=== PATIENT | male | born 1945 | race Caucasian/White ===

== ENCOUNTER 2018-05-24 10:47 | Observation (INO) | payer MEDICARE, BC ==
[~2018-05-24] VITALS: Ht 170.2 cm; Wt 96.0 kg
[~2018-05-24 10:47] MED LIST: ALBU90OI INH; ALFU10 PO; ALPR.25 PO; ALPR.5 PO; AMLO5 PO; Aspirin EC81 MG PO; BP MED; BUDE6HFA; BUDE6HFA INH; CELE200 PO; CHOLESTEROL MED; DIAZ10 PO; DICY20 PO; ERGO50000 PO; FURO20 PO; Glucosamine &1 EACH PO; HYDACE5 PO; INSLI100I SC; INSR10I SC; Isosorbide Mono30 MG PO; LISI20 PO; LORA1 PO; Lisinopril2.5 MG PO; METO25ER PO; Magnesium250 MG PO; Metamucil Smooth1 EA PO; Multiple Vitam1 EAC1; Nitrostat0.4 MG SL; Novolog Fl100 UNIT/1 SC; OMEPRAZOLE MAGN20 MG PO; OXYACE7.5T PO; POLY500; PROBIOTIC1 EAC1; RISP.25 PO; RISP3 PO; ROSU5 PO; SERT25 PO; Stool Softener100 MG; TAMS.4ER PO; VITAMIN D34000 UNIT PO; [UNRECOGNIZED DRUG - REMARK]
[2018-05-24 11:43] LABS: BASOPHILS ABSOLUTE AUTO 0.04 K/mm3 (0.00-0.23); BASOPHILS PERCENT AUTO 1 % (0-2); EOSINOPHILS ABSOLUTE AUTO 0.11 K/mm3 (0.00-0.68); EOSINOPHILS PERCENT AUTO 2 % (0-6); Hematocrit 51.5 % (37.0-53.0); Hemoglobin 17.4 g/dL (13.5-17.5); IMMATURE GRAN ABSOLUTE AUTO 0.03 K/mm3 (0.00-0.10); IMMATURE GRAN PERCENT AUTO 0 % (0-1); LYMPHOCYTES ABSOLUTE AUTO 1.72 K/mm3 (0.84-5.20); LYMPHOCYTES PERCENT AUTO 25 % (21-46); MONOCYTES ABSOLUTE AUTO 0.59 K/mm3 (0.16-1.47); MONOCYTES PERCENT AUTO 9 % (4-13); Mean Corpuscular HGB Conc 33.8 g/dL (31.5-36.5); Mean Corpuscular Volume 89 fL (80-100); Mean Platelet Volume 10.2 fL (9.1-12.4); NEUTROPHILS ABSOLUTE AUTO 4.46 K/mm3 (1.96-9.15); NEUTROPHILS PERCENT AUTO 64 % (41-73); Platelet Count 122 K/mm3 (150-400); RDW Standard Deviation 42.1 fL (35.1-46.3); White Blood Cell Count 6.95 K/mm3 (4.00-11.30)
[2018-05-24 12:04] LABS: Alanine Aminotransfer (ALT/SGP 21 U/L (12-78); Albumin, Blood 3.5 g/dL (3.4-5.0); Alk Phos 88 U/L (50-136); Anion Gap 7 mmol/L (6-16); Aspartate Aminotrans (AST/SGOT 17 U/L (12-37); Bilirubin, Total 0.5 mg/dL (0.1-1.0); Blood Urea Nitrogen 33 mg/dL (8-24); Bun/Creatinine Ratio 20.2 (12.0-20.0); CO2, Blood 28 mmol/L (21-32); Calcium, Blood 8.6 mg/dL (8.5-10.1); Chloride, Blood 103 mmol/L (98-108); Creatinine, Blood 1.63 mg/dL (0.60-1.20); Globulin, Blood 3.6 g/dL (2.2-4.0); Glomerular Filtration Rate 44 (60-); Glucose, Blood 162 mg/dL (70-99); Sodium, Blood 138 mmol/L (136-145); Total Protein, Blood 7.1 g/dL (6.4-8.2); Troponin I <0.015 ng/mL (0.000-0.040)
[2018-05-24] MEDS ORDERED: Depo-Testos200 MG/ML IM (12:29)
[2018-05-24] MEDS ORDERED: GABA300 PO (12:29)
[2018-05-24] MEDS ORDERED: TAMS.4ER PO (12:30)
[2018-05-25 05:43] LABS: BASOPHILS ABSOLUTE AUTO 0.03 K/mm3 (0.00-0.23); BASOPHILS PERCENT AUTO 0 % (0-2); EOSINOPHILS ABSOLUTE AUTO 0.14 K/mm3 (0.00-0.68); EOSINOPHILS PERCENT AUTO 2 % (0-6); Hematocrit 51.7 % (37.0-53.0); Hemoglobin 17.5 g/dL (13.5-17.5); IMMATURE GRAN ABSOLUTE AUTO 0.02 K/mm3 (0.00-0.10); IMMATURE GRAN PERCENT AUTO 0 % (0-1); LYMPHOCYTES ABSOLUTE AUTO 2.02 K/mm3 (0.84-5.20); LYMPHOCYTES PERCENT AUTO 27 % (21-46); MONOCYTES ABSOLUTE AUTO 0.72 K/mm3 (0.16-1.47); MONOCYTES PERCENT AUTO 10 % (4-13); Mean Corpuscular HGB 29.8 pg (26.0-34.0); Mean Corpuscular HGB Conc 33.8 g/dL (31.5-36.5); Mean Corpuscular Volume 88 fL (80-100); Mean Platelet Volume 9.8 fL (9.1-12.4); NEUTROPHILS ABSOLUTE AUTO 4.56 K/mm3 (1.96-9.15); NEUTROPHILS PERCENT AUTO 61 % (41-73); Platelet Count 120 K/mm3 (150-400); RDW Coefficient Variation 12.9 % (11.7-14.2); RDW Standard Deviation 41.8 fL (35.1-46.3); Red Blood Cell Count 5.87 M/mm3 (4.30-5.90); White Blood Cell Count 7.49 K/mm3 (4.00-11.30)
[2018-05-25 06:04] LABS: Alanine Aminotransfer (ALT/SGP 18 U/L (12-78); Albumin, Blood 3.5 g/dL (3.4-5.0); Albumin/Globulin Ratio 1.1 (0.8-1.8); Alk Phos 81 U/L (50-136); Anion Gap 8 mmol/L (6-16); Aspartate Aminotrans (AST/SGOT 16 U/L (12-37); Bilirubin, Total 0.5 mg/dL (0.1-1.0); Blood Urea Nitrogen 31 mg/dL (8-24); Bun/Creatinine Ratio 19.6 (12.0-20.0); CHOL/HDL RATIO 4.6; CO2, Blood 27 mmol/L (21-32); Calcium, Blood 9.3 mg/dL (8.5-10.1); Chloride, Blood 103 mmol/L (98-108); Cholesterol 133 mg/dL (50-200); Creatinine, Blood 1.58 mg/dL (0.60-1.20); Globulin, Blood 3.3 g/dL (2.2-4.0); Glomerular Filtration Rate 46 (60-); Glucose, Blood 115 mg/dL (70-99); HDL Cholesterol 29 mg/dL (>39); LDL/HDL RATIO 2.2; Low Density Lipoprotein Chol 64 mg/dL (0-110); Potassium, Blood 4.2 mmol/L (3.5-5.5); Sodium, Blood 138 mmol/L (136-145); Total Protein, Blood 6.8 g/dL (6.4-8.2); Triglycerides 198 mg/dL (30-160); Troponin I <0.015 ng/mL (0.000-0.040); Very Low Density Lipoprot Chol 39 mg/dL (6-32)
[2018-05-26 04:33] LABS: BASOPHILS ABSOLUTE AUTO 0.04 K/mm3 (0.00-0.23); BASOPHILS PERCENT AUTO 1 % (0-2); EOSINOPHILS ABSOLUTE AUTO 0.15 K/mm3 (0.00-0.68); EOSINOPHILS PERCENT AUTO 2 % (0-6); Hematocrit 51.1 % (37.0-53.0); Hemoglobin 17.4 g/dL (13.5-17.5); IMMATURE GRAN ABSOLUTE AUTO 0.04 K/mm3 (0.00-0.10); IMMATURE GRAN PERCENT AUTO 1 % (0-1); LYMPHOCYTES ABSOLUTE AUTO 2.07 K/mm3 (0.84-5.20); LYMPHOCYTES PERCENT AUTO 29 % (21-46); MONOCYTES ABSOLUTE AUTO 0.69 K/mm3 (0.16-1.47); MONOCYTES PERCENT AUTO 10 % (4-13); Mean Corpuscular HGB 29.8 pg (26.0-34.0); Mean Corpuscular HGB Conc 34.1 g/dL (31.5-36.5); Mean Corpuscular Volume 88 fL (80-100); Mean Platelet Volume 10.4 fL (9.1-12.4); NEUTROPHILS ABSOLUTE AUTO 4.23 K/mm3 (1.96-9.15); NEUTROPHILS PERCENT AUTO 58 % (41-73); Platelet Count 115 K/mm3 (150-400); RDW Coefficient Variation 12.8 % (11.7-14.2); RDW Standard Deviation 41.2 fL (35.1-46.3); Red Blood Cell Count 5.84 M/mm3 (4.30-5.90); White Blood Cell Count 7.22 K/mm3 (4.00-11.30)
[2018-05-26 04:51] LABS: Bun/Creatinine Ratio 20.6 (12.0-20.0); Calcium, Blood 8.9 mg/dL (8.5-10.1); Creatinine, Blood 1.7 mg/dL (0.60-1.20); Potassium, Blood 4.3 mmol/L (3.5-5.5)
== END 2018-05-26 16:26 | disposition home or self-care (01) ==
LOC: ER 10:47 → MEDS 10:48 → ENPENDDIS 05-26 15:30 → MEDS 05-26 16:26
PROVIDERS: Emergency Medicine; Internal Medicine
DX: R07.9 Chest pain, unspecified (principal); I25.10 Atherosclerotic heart disease of native coronary artery without angina pectoris; E78.5 Hyperlipidemia, unspecified; E88.81 Metabolic syndrome and other insulin resistance; E11.22 Type 2 diabetes mellitus with diabetic chronic kidney disease; I12.9 Hypertensive chronic kidney disease with stage 1 through stage 4 chronic kidney disease, or unspecified chronic kidney disease; N18.9 Chronic kidney disease, unspecified; Z88.5 Allergy status to narcotic agent; Z79.4 Long term (current) use of insulin; Z79.899 Other long term (current) drug therapy
CPT/HCPCS: 36415; 71046; 78452; 80048; 80053; 80061; 82947; 84443; 84484; 85025; 93005; 93010; 93017; 93306; 94760; 96372; 99285-25; A9500; G0378; J1644

== ENCOUNTER 2019-04-16 09:57 | Observation (INO) | payer MEDICARE, BC ==
[~2019-04-16] VITALS: Ht 170.2 cm; Wt 95.3 kg
[~2019-04-16 09:57] MED LIST changes: +Depo-Testos200 MG/ML IM; +GABA300 PO; -Novolog Fl100 UNIT/1 SC; +Novolog100 UNIT/1 SC; +OMEP20ER PO; -OMEPRAZOLE MAGN20 MG PO; -RISP.25 PO; +RISP.5 PO; -SERT25 PO; +SERT50 PO
[2019-04-16 10:34] LABS: BASOPHILS ABSOLUTE AUTO 0.02 K/mm3 (0.00-0.23); BASOPHILS PERCENT AUTO 0 % (0-2); EOSINOPHILS ABSOLUTE AUTO 0.06 K/mm3 (0.00-0.68); EOSINOPHILS PERCENT AUTO 1 % (0-6); Hematocrit 40.6 % (37.0-53.0); Hemoglobin 13.6 g/dL (13.5-17.5); IMMATURE GRAN ABSOLUTE AUTO 0.02 K/mm3 (0.00-0.10); IMMATURE GRAN PERCENT AUTO 0 % (0-1); LYMPHOCYTES ABSOLUTE AUTO 1.76 K/mm3 (0.84-5.20); LYMPHOCYTES PERCENT AUTO 30 % (21-46); MONOCYTES ABSOLUTE AUTO 0.57 K/mm3 (0.16-1.47); MONOCYTES PERCENT AUTO 10 % (4-13); Mean Corpuscular HGB 30.1 pg (26.0-34.0); Mean Corpuscular HGB Conc 33.5 g/dL (31.5-36.5); Mean Corpuscular Volume 90 fL (80-100); Mean Platelet Volume 10.4 fL (9.1-12.4); NEUTROPHILS ABSOLUTE AUTO 3.42 K/mm3 (1.96-9.15); NEUTROPHILS PERCENT AUTO 59 % (41-73); Platelet Count 113 K/mm3 (150-400); RDW Coefficient Variation 12.7 % (11.7-14.2); RDW Standard Deviation 41.7 fL (35.1-46.3); Red Blood Cell Count 4.52 M/mm3 (4.30-5.90); White Blood Cell Count 5.85 K/mm3 (4.00-11.30)
[2019-04-16] MEDS ORDERED: TRAM50 PO (10:34)
[2019-04-16 10:51] LABS: Alanine Aminotransfer (ALT/SGP 20 U/L (12-78); Albumin, Blood 3.5 g/dL (3.4-5.0); Albumin/Globulin Ratio 1.2 (0.8-1.8); Alk Phos 95 U/L (50-136); Anion Gap 5 mmol/L (6-16); Aspartate Aminotrans (AST/SGOT 11 U/L (12-37); Bilirubin, Total 0.5 mg/dL (0.1-1.0); Blood Urea Nitrogen 35 mg/dL (8-24); Bun/Creatinine Ratio 19.2 (12.0-20.0); CO2, Blood 27 mmol/L (21-32); Calcium, Blood 8.6 mg/dL (8.5-10.1); Chloride, Blood 109 mmol/L (98-108); Creatinine, Blood 1.82 mg/dL (0.60-1.20); Glomerular Filtration Rate 39 (60-); Glucose, Blood 123 mg/dL (70-99); Potassium, Blood 3.9 mmol/L (3.5-5.5); Sodium, Blood 141 mmol/L (136-145); Total Protein, Blood 6.5 g/dL (6.4-8.2); Troponin I <0.015 ng/mL (0.000-0.040)
[2019-04-16] MEDS ORDERED: INSULANPEN SC (13:42)
[2019-04-16] MEDS ORDERED: NOVOLOG FL100 UNIT/1 SC (13:43)
[2019-04-16] MEDS ORDERED: Isosorbide Mono30 MG PO (14:37)
--- NOTE | 2019-04-16 17:33 | NUR ---
ADMIT/EVENING NOTE PT RESTING QUIETLY. SR. NO ECTOPY. PT HAS DENIED CHEST PAIN, CHEST PRESSURE ON NECK PAIN. DR BELL CAME TO SEE PT AT BEDSIDE. PLAN IS AN ANGIOGRAM IN THE MORNING. UNSURE WHAT TIME. PT WILL START ON MUCOMYST THIS EVENING. IVF INFUSING PER ORDER. PT UP TO BATHROOM WITH SBA. VOIDING WELL. CONTINUE POT.
--- NOTE | 2019-04-16 21:39 | NUR ---
Assumed care of pt at approx 1900 presenting laying in bed, resting, watching TV. Pt appears comfortable, breathing easy and unlabored. Pt answers questions appropriately, is alert and oriented, calm and cooperative to treatment and care. VSS. See shift assessment for detailed systems assessment Pt denies chest pain, pressure, or SOB at this time. Pt denies nausea or cramping. Pt voids in bathroom urinal independantly in room, denies feelings of lightheadedness or dizziness with positional changes. pt with insulin pump, self managed. cpap, self managed. 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 Pt will be NPO at midnight per orders. Will continue to monitor and update.
[2019-04-17 02:41] LABS: Anion Gap 5 mmol/L (6-16); Blood Urea Nitrogen 36 mg/dL (8-24); Bun/Creatinine Ratio 22.6 (12.0-20.0); CO2, Blood 28 mmol/L (21-32); Calcium, Blood 8.8 mg/dL (8.5-10.1); Chloride, Blood 108 mmol/L (98-108); Creatinine, Blood 1.59 mg/dL (0.60-1.20); Glomerular Filtration Rate 46 (60-); Glucose, Blood 173 mg/dL (70-99); Potassium, Blood 4.9 mmol/L (3.5-5.5); Sodium, Blood 141 mmol/L (136-145); Troponin I <0.015 ng/mL (0.000-0.040)
--- NOTE | 2019-04-17 06:46 | NUR ---
Shift Summary No changes this shift. Pt remains VSS. Denies chest pain, no chest pressure. Pt denies SOB and is breathing easy and unlabored. Pt made NPO at midnight, compliant. Pt disconnected from self managed insulin pump at midnight. At approx 0630 pt with CBG of 339, pt placed pump back and administered 15 units given per pt insulin pump rdg. Angio scheduled for today. Pt compliant with all preparations. No changes from initial shift assessment, will continue to monitor.
--- NOTE | 2019-04-17 09:36 | NUR ---
ANGIOGRAM TRANSFER TO [facility] BY BED ACCOMPANIED BY STAFF. INSULIN PUMP ATTACHED AND INFUSING. CONTINUE POT.
--- NOTE | 2019-04-17 11:38 | NUR ---
POST OP ANGIOGRAM PT ARRIVED FROM [facility]. BESIDE REPORT RECIEVED FROM GAURAV [facility]. PT AWAKE AND ALERT. RIGHT RADIAL TR BAND CHECKED. CD&I. VSS. FAMILY AT BEDSIDE. DR DISLA HERE TO TALK WITH PT ABOUT TRANSFER TO [facility]. CONTINUE POT.
--- NOTE | 2019-04-17 11:40 | NUR ---
[facility] TRANSFER INITIATED. PT AGREEABLE TO TRANSFER. FAMILY AWARE OF TRANSFER. [facility]EL HAS ACCEPTED CARE. REPORT CALLED TO MALIHA [facility] FOR RM [id number] AT [phone]. PT IS GOING TO EAT LUNCH PRIOR TO TRANSPORT BY [employer]. CONTINUE POT.
--- NOTE | 2019-04-17 12:56 | NUR ---
TRANSFER [facility] PT REPORT CALLED TO RON SEO AT [facility]. [place] HERE TO TRANSPORT. PT TRANFERED SELF TO [facility]. HEPARIN GTT INFUSING. NS AT 75 INFUSING. PT VOIDED BRFORE LEAVING. INSULIN PUMP AND SENSOR WITH PT. CONTINUE POT.
== END 2019-04-17 12:31 | disposition short-term general hospital (02) ==
LOC: ER 09:57 → PCU 09:58 → ER 14:04 → PCU 14:30
PROVIDERS: Emergency Medicine; ADMIT Internal Medicine
PROC: B2111ZZ Fluoroscopy of Multiple Coronary Arteries using Low Osmolar Contrast (ICD-10-PCS; principal; 2019-04-17)
PROC: 4A023N7 Measurement of Cardiac Sampling and Pressure, Left Heart, Percutaneous Approach (ICD-10-PCS; 2019-04-17)
DX: I25.10 Atherosclerotic heart disease of native coronary artery without angina pectoris (principal); E11.22 Type 2 diabetes mellitus with diabetic chronic kidney disease; I12.9 Hypertensive chronic kidney disease with stage 1 through stage 4 chronic kidney disease, or unspecified chronic kidney disease; N18.9 Chronic kidney disease, unspecified; E78.5 Hyperlipidemia, unspecified; Z96.41 Presence of insulin pump (external) (internal); Z79.899 Other long term (current) drug therapy; Z79.82 Long term (current) use of aspirin; Z88.5 Allergy status to narcotic agent; Z88.8 Allergy status to other drugs, medicaments and biological substances
CPT/HCPCS: 36415; 71046; 80048; 80053; 82947; 83880; 84484; 85025; 93005; 93010; 93458; 94640; 94762; 96372; 99152; 99153; 99285-25; C1769; C1894; G0378; J1644; J1650; J2250; J3010; J7030; Q9967

== ENCOUNTER → 2019-08-26 | Outpatient (CLI) | payer MEDICARE, BC ==
[~2019-08-26] MED LIST changes: +ELIQUIS5 M3 PO; +FISH OIL 1,001000 MG PO; +Hair, Skin & N1 EACH PO; +INSULANPEN SC; +METO25 PO; +METOPROLOL TART25 MG PO; +NOVOLOG FL100 UNIT/1 SC; +Prinivil10 MG PO; +TRAM50 PO
[2019-08-26 12:10] LABS: Creatinine Urine 55.3 mg/dL (27.00-270.00); Protein, Urine Quantitative 5.5 mg/dL (0.0-11.9)
[2019-08-26 12:12] LABS: Microalbumin, Urine Quant. 12.8 mg/L (0.000-20.000)
== END | disposition home or self-care (01) ==
LOC: LAB SHORT 09:00 → OLS 09:00
PROVIDERS: Internal Medicine Nephrology
DX: N18.3 Chronic kidney disease, stage 3 (moderate) (principal); D63.1 Anemia in chronic kidney disease; R80.9 Proteinuria, unspecified; N25.81 Secondary hyperparathyroidism of renal origin; E55.9 Vitamin D deficiency, unspecified; E78.00 Pure hypercholesterolemia, unspecified; R76.9 Abnormal immunological finding in serum, unspecified; R94.5 Abnormal results of liver function studies; R94.6 Abnormal results of thyroid function studies
CPT/HCPCS: 81050; 82043; 82570; 84156

== ENCOUNTER 2019-09-02 21:22 | Observation (INO) | payer MEDICARE, BC ==
[~2019-09-02] VITALS: Ht 170.2 cm; Wt 91.6 kg
[~2019-09-02 21:22] MED LIST changes: -ELIQUIS5 M3 PO; -FISH OIL 1,001000 MG PO; -Hair, Skin & N1 EACH PO; -METO25 PO; -METOPROLOL TART25 MG PO; -Prinivil10 MG PO
[2019-09-02 22:03] LABS: BASOPHILS ABSOLUTE AUTO 0.03 K/mm3 (0.00-0.23); BASOPHILS PERCENT AUTO 1 % (0-2); EOSINOPHILS ABSOLUTE AUTO 0.11 K/mm3 (0.00-0.68); EOSINOPHILS PERCENT AUTO 2 % (0-6); Hematocrit 41.7 % (37.0-53.0); Hemoglobin 13.9 g/dL (13.5-17.5); IMMATURE GRAN ABSOLUTE AUTO 0.01 K/mm3 (0.00-0.10); IMMATURE GRAN PERCENT AUTO 0 % (0-1); LYMPHOCYTES ABSOLUTE AUTO 2.16 K/mm3 (0.84-5.20); LYMPHOCYTES PERCENT AUTO 38 % (21-46); MONOCYTES ABSOLUTE AUTO 0.54 K/mm3 (0.16-1.47); MONOCYTES PERCENT AUTO 10 % (4-13); Mean Corpuscular HGB 28.5 pg (26.0-34.0); Mean Corpuscular HGB Conc 33.3 g/dL (31.5-36.5); Mean Corpuscular Volume 86 fL (80-100); Mean Platelet Volume 9.8 fL (9.1-12.4); NEUTROPHILS ABSOLUTE AUTO 2.81 K/mm3 (1.96-9.15); NEUTROPHILS PERCENT AUTO 50 % (41-73); Platelet Count 129 K/mm3 (150-400); RDW Standard Deviation 43.4 fL (35.1-46.3); Red Blood Cell Count 4.88 M/mm3 (4.30-5.90); White Blood Cell Count 5.66 K/mm3 (4.00-11.30)
[2019-09-02 22:21] LABS: Anion Gap 5 mmol/L (6-16); Blood Urea Nitrogen 36 mg/dL (8-24); Bun/Creatinine Ratio 21.1 (12.0-20.0); CO2, Blood 31 mmol/L (21-32); Calcium, Blood 9.3 mg/dL (8.5-10.1); Chloride, Blood 103 mmol/L (98-108); Creatinine, Blood 1.71 mg/dL (0.60-1.20); Glomerular Filtration Rate 42 (60-); Glucose, Blood 130 mg/dL (70-99); Potassium, Blood 4.1 mmol/L (3.5-5.5); Sodium, Blood 139 mmol/L (136-145); Troponin I <0.015 ng/mL (0.000-0.040)
[2019-09-02] MEDS ORDERED: METOPROLOL TART25 MG PO (22:42)
[2019-09-02] MEDS ORDERED: ELIQUIS5 M3 PO (22:42)
--- NOTE | 2019-09-03 00:30 | NUR ---
PCU ADMIT PT BROUGHT TO PCU RM 07 BY [facility] FROM ER @ 2350. PT A&O X4, ABLE TO STAND AND INDEPENDENTLY AMBULATE TO PCU BED. MONITOR SHOWS NSR, HR 70's. LUNG SOUNDS CLEAR, SPO2 > 92% ON RA. PT W/ HOME CPAP, SET UP BY RT. BP ELEVATED, OTHERWISE VSS. PT DENIES CP BUT REPORTS A REMAINING "PRESSURE" AFTER HAVING CP TODAY. WILL CONTINUE TO MONITOR AND PROVIDE CARE.
[2019-09-03] MEDS ORDERED: FISH OIL 1,001000 MG PO (01:01)
[2019-09-03] MEDS ORDERED: Hair, Skin & N1 EACH PO (01:02)
--- NOTE | 2019-09-03 06:07 | NUR ---
SHIFT SUMMARY PT A&O X4. VSS. PT DENIES CP THIS SHIFT BUT REPORTS
[2019-09-03] MEDS ORDERED: METO25 PO (12:09)
[2019-09-03] MEDS ORDERED: Prinivil10 MG PO (12:11)
--- NOTE | 2019-09-03 12:43 | NUR ---
PT D/C. PT D/C'D HOME WITH . NEW MEDICATIONS WERE FAXED TO PT'S PHARMACY OF CHOICE. PT'S BELONGINGS PACKED AND SENT WITH THE PT. PT DENIES CHEST PAIN/PRESSURE AT THIS TIME. PT'S VS STABLE. NEW MEDICATION EDUCATION PROVIDED TO PT AND . DISCHARGE INFORMATION/EDUCATION PROVIDED TO PT AND . BOTH STATED THEIR UNDERSTANDING. IV WAS REMOVED WNL. PT WAS ESCORTED OUT OF THE HOSPITAL VIA W/C.
--- NOTE | 2019-09-03 12:54 | NUR ---
MORNING NOTE ASSUMED CARE OF PATIENT AT 0700, PATIENT AWAKE AND ALERT IN BED WITH NO SIGNS OF DISTRESS. MEDICATED PATIENT PER EMAR, PT DENIES PAIN/DISCOMFORT. WILL CONTINUE TO MONITOR. BED LOCKED AND LOW, CALL LIGHT W/IN REACH
--- NOTE | 2019-09-03 13:52 | NUR ---
DISCHARGE NOTE DISCHARGE ORDERS RECEIVED, PATIENT EDUCATED AND VERBALIZED UNDERSTANDING OF ALL DISCHARGE ORDERS INCLUDING MEDICATIONS AND FOLLOWUP APPOINTMENTS. PATIENT'S IV DC'D W/ NO BLEEDING, REDNESS OR SORENESS. PATIENT LEFT UNIT BY WHEELCHAIR WITH ALL HIS PERSONAL BELONGINGS ESCORTED BY ONE FOLDER TIER AND ONE FAMILY MEMBER. NO QUESTIONS, NO ISSUES.
== END 2019-09-03 12:57 | disposition home or self-care (01) ==
LOC: ER 21:22 → PCU 21:23
PROVIDERS: Physician Assistant; ADMIT Hospitalist
DX: I25.119 Atherosclerotic heart disease of native coronary artery with unspecified angina pectoris (principal); I12.9 Hypertensive chronic kidney disease with stage 1 through stage 4 chronic kidney disease, or unspecified chronic kidney disease; E10.22 Type 1 diabetes mellitus with diabetic chronic kidney disease; N18.3 Chronic kidney disease, stage 3 (moderate); I48.20 Chronic atrial fibrillation, unspecified; K21.9 Gastro-esophageal reflux disease without esophagitis; N40.0 Benign prostatic hyperplasia without lower urinary tract symptoms; E10.40 Type 1 diabetes mellitus with diabetic neuropathy, unspecified; J44.9 Chronic obstructive pulmonary disease, unspecified; E78.5 Hyperlipidemia, unspecified; E78.00 Pure hypercholesterolemia, unspecified; F31.81 Bipolar II disorder; Z95.1 Presence of aortocoronary bypass graft; Z88.5 Allergy status to narcotic agent; Z88.8 Allergy status to other drugs, medicaments and biological substances; Z79.4 Long term (current) use of insulin; Z96.41 Presence of insulin pump (external) (internal); Z79.01 Long term (current) use of anticoagulants; Z79.82 Long term (current) use of aspirin; Z79.899 Other long term (current) drug therapy
CPT/HCPCS: 36415; 71046; 80048; 84484; 85025; 93005; 93010; 94640; 94760; 94762; 99285-25

== ENCOUNTER 2020-10-08 17:12 | Emergency (ER) | payer MEDICARE, BC ==
[~2020-10-08] VITALS: Ht 172.7 cm; Wt 95.2 kg
[~2020-10-08 17:12] MED LIST changes: +Aspir 8181 MG PO; +Crestor20 MG PO; +ELIQUIS5 M3 PO; +FISH OIL 1,001000 MG PO; +Hair, Skin & N1 EACH PO; +METO25 PO; +METOPROLOL TART25 MG PO; +MULTIVITAMINS1 EAC3 PO; +NITR.4SL SL; +Novolog100 UNIT/2 SC; +Prinivil10 MG PO; +SERT25 PO; +SYMBICORT 160-4.6 GM INH; +VITAMIN D32000 UNIT PO; +WARF4 PO
[2020-10-08 17:39] LABS: BASOPHILS ABSOLUTE AUTO 0.02 K/mm3 (0.00-0.23); BASOPHILS PERCENT AUTO 0 % (0-2); EOSINOPHILS PERCENT AUTO 2 % (0-6); Hematocrit 39.2 % (37.0-53.0); Hemoglobin 13.2 g/dL (13.5-17.5); IMMATURE GRAN ABSOLUTE AUTO 0.03 K/mm3 (0.00-0.10); IMMATURE GRAN PERCENT AUTO 1 % (0-1); LYMPHOCYTES ABSOLUTE AUTO 1.69 K/mm3 (0.84-5.20); LYMPHOCYTES PERCENT AUTO 30 % (21-46); MONOCYTES ABSOLUTE AUTO 0.45 K/mm3 (0.16-1.47); MONOCYTES PERCENT AUTO 8 % (4-13); Mean Corpuscular HGB 29.7 pg (26.0-34.0); Mean Corpuscular HGB Conc 33.7 g/dL (31.5-36.5); Mean Corpuscular Volume 88 fL (80-100); Mean Platelet Volume 10.2 fL (9.1-12.4); NEUTROPHILS ABSOLUTE AUTO 3.38 K/mm3 (1.96-9.15); NEUTROPHILS PERCENT AUTO 60 % (41-73); Platelet Count 111 K/mm3 (150-400); RDW Standard Deviation 42.2 fL (35.1-46.3); Red Blood Cell Count 4.45 M/mm3 (4.30-5.90); White Blood Cell Count 5.67 K/mm3 (4.00-11.30)
[2020-10-08 18:04] LABS: Alanine Aminotransfer (ALT/SGP 27 U/L (12-78); Albumin, Blood 3.6 g/dL (3.4-5.0); Albumin/Globulin Ratio 1.1 (0.8-1.8); Alk Phos 93 U/L (50-136); Anion Gap 5 mmol/L (6-16); Aspartate Aminotrans (AST/SGOT 20 U/L (12-37); Bilirubin, Total 0.4 mg/dL (0.1-1.0); Blood Urea Nitrogen 36 mg/dL (8-24); Bun/Creatinine Ratio 18.8 (12.0-20.0); CO2, Blood 29 mmol/L (21-32); Calcium, Blood 8.8 mg/dL (8.5-10.1); Chloride, Blood 106 mmol/L (98-108); Creatinine, Blood 1.92 mg/dL (0.60-1.20); Globulin, Blood 3.3 g/dL (2.2-4.0); Glomerular Filtration Rate 36 (60-); Glucose, Blood 182 mg/dL (70-99); Potassium, Blood 4.1 mmol/L (3.5-5.5); Sodium, Blood 140 mmol/L (136-145); Total Protein, Blood 6.9 g/dL (6.4-8.2); Troponin I <0.015 ng/mL (0.000-0.040)
[2020-10-08 23:23] LABS: International Normalized Ratio 3.04; Prothrombin Time Results 30.5 Sec (9.7-11.5)
== END 2020-10-08 23:45 | disposition home or self-care (01) ==
LOC: ER 17:12
PROVIDERS: Physician Assistant
DX: R04.0 Epistaxis (principal); R07.89 Other chest pain; I10 Essential (primary) hypertension; I25.10 Atherosclerotic heart disease of native coronary artery without angina pectoris; E11.9 Type 2 diabetes mellitus without complications; E78.00 Pure hypercholesterolemia, unspecified; F31.9 Bipolar disorder, unspecified; Z88.8 Allergy status to other drugs, medicaments and biological substances; Z88.5 Allergy status to narcotic agent; Z79.4 Long term (current) use of insulin; Z79.01 Long term (current) use of anticoagulants; Z79.51 Long term (current) use of inhaled steroids; Z79.82 Long term (current) use of aspirin; Z79.899 Other long term (current) drug therapy
CPT/HCPCS: 36415; 71046; 80053; 84484; 85025; 85610; 93005; 93010; 99285-25

== ENCOUNTER 2022-06-13 14:16 | Emergency (ER) | payer MEDICARE, BC ==
[~2022-06-13] VITALS: Ht 172.7 cm; Wt 97.5 kg
[~2022-06-13 14:16] MED LIST changes: +CATAPRES0.1 MG PO; +FELODIPINE PO; +MULVITA PO; +NOVOLOG100 UNIT/3; +ROSU10TA; +SERT25
[2022-06-13 14:53] LABS: BASOPHILS ABSOLUTE AUTO 0.02 K/mm3 (0.00-0.23); BASOPHILS PERCENT AUTO 0 % (0-2); EOSINOPHILS PERCENT AUTO 2 % (0-6); Hematocrit 37.7 % (37.0-53.0); Hemoglobin 12.8 g/dL (13.5-17.5); IMMATURE GRAN ABSOLUTE AUTO 0.02 K/mm3 (0.00-0.10); IMMATURE GRAN PERCENT AUTO 0 % (0-1); LYMPHOCYTES ABSOLUTE AUTO 1.88 K/mm3 (0.84-5.20); LYMPHOCYTES PERCENT AUTO 33 % (21-46); MONOCYTES ABSOLUTE AUTO 0.46 K/mm3 (0.16-1.47); MONOCYTES PERCENT AUTO 8 % (4-13); Mean Corpuscular Volume 88 fL (80-100); Mean Platelet Volume 10.2 fL (9.1-12.4); NEUTROPHILS ABSOLUTE AUTO 3.25 K/mm3 (1.96-9.15); NEUTROPHILS PERCENT AUTO 57 % (41-73); Platelet Count 127 K/mm3 (150-400); RDW Standard Deviation 42.2 fL (35.1-46.3); Red Blood Cell Count 4.27 M/mm3 (4.30-5.90); White Blood Cell Count 5.73 K/mm3 (4.00-11.30)
[2022-06-13 15:06] LABS: Albumin, Blood 3.8 g/dL (3.4-5.0); Albumin/Globulin Ratio 1.2 (0.8-1.8); Bilirubin, Total 0.4 mg/dL (0.1-1.0); Bun/Creatinine Ratio 21.9 (12.0-20.0); Creatinine, Blood 1.87 mg/dL (0.60-1.20); Globulin, Blood 3.1 g/dL (2.2-4.0); Potassium, Blood 4.8 mmol/L (3.5-5.5); Total Protein, Blood 6.9 g/dL (6.4-8.2)
== END 2022-06-13 16:11 | disposition home or self-care (01) ==
LOC: ER 14:16
PROVIDERS: Physician Assistant
DX: E11.649 Type 2 diabetes mellitus with hypoglycemia without coma (principal); I10 Essential (primary) hypertension; I25.10 Atherosclerotic heart disease of native coronary artery without angina pectoris; Z79.01 Long term (current) use of anticoagulants; Z79.82 Long term (current) use of aspirin; Z79.899 Other long term (current) drug therapy; Z88.8 Allergy status to other drugs, medicaments and biological substances; Z95.1 Presence of aortocoronary bypass graft; Z96.41 Presence of insulin pump (external) (internal)
CPT/HCPCS: 36415; 80053; 82947; 85025; J7042

== ENCOUNTER → 2024-12-07 | Outpatient (CLI) | payer OTHER ==
[2024-12-07 15:02] LABS: BASOPHILS ABSOLUTE AUTO 0.03 K/mm3 (0.00-0.23); BASOPHILS PERCENT AUTO 1 % (0-2); EOSINOPHILS ABSOLUTE AUTO 0.09 K/mm3 (0.00-0.68); EOSINOPHILS PERCENT AUTO 2 % (0-6); Hematocrit 37.8 % (37.0-53.0); Hemoglobin 12.8 g/dL (13.5-17.5); IMMATURE GRAN ABSOLUTE AUTO 0.02 K/mm3 (0.00-0.10); IMMATURE GRAN PERCENT AUTO 0 % (0-1); LYMPHOCYTES ABSOLUTE AUTO 1.69 K/mm3 (0.84-5.20); LYMPHOCYTES PERCENT AUTO 32 % (21-46); MONOCYTES PERCENT AUTO 10 % (4-13); Mean Corpuscular HGB 29.9 pg (26.0-34.0); Mean Corpuscular HGB Conc 33.9 g/dL (31.5-36.5); Mean Corpuscular Volume 88 fL (80-100); NEUTROPHILS PERCENT AUTO 55 % (41-73); RDW Standard Deviation 41.6 fL (35.1-46.3); Red Blood Cell Count 4.28 M/mm3 (4.30-5.90); White Blood Cell Count 5.23 K/mm3 (4.00-11.30)
[2024-12-07 15:13] LABS: Albumin, Blood 3.5 g/dL (3.4-5.0); Albumin/Globulin Ratio 1.2 (0.8-1.8); Bilirubin, Total 0.5 mg/dL (0.1-1.0); Bun/Creatinine Ratio 19.5 (12.0-20.0); Calcium, Blood 8.5 mg/dL (8.5-10.1); Creatinine, Blood 2.2 mg/dL (0.60-1.20); Total Protein, Blood 6.5 g/dL (6.4-8.2)
[2024-12-07 15:20] LABS: Mean Platelet Volume 9.8 fL (9.1-12.4); Platelet Count 114 K/mm3 (150-400)
== END ==
LOC: LAB SHORT 14:58 → LAB 14:58
DX: R53.1 Weakness (principal)
CPT/HCPCS: 80053; 85025

== ENCOUNTER 2025-02-06 11:47 | Observation (INO) | payer OTHER ==
[~2025-02-06] VITALS: Ht 172.7 cm; Wt 100.2 kg
[~2025-02-06 11:47] MED LIST changes: +Crestor40 MG PO; -ROSU10TA; -SERT25
[2025-02-06 12:17] LABS: BASOPHILS ABSOLUTE AUTO 0.03 K/mm3 (0.00-0.23); BASOPHILS PERCENT AUTO 1 % (0-2); EOSINOPHILS PERCENT AUTO 2 % (0-6); Hematocrit 39.6 % (37.0-53.0); Hemoglobin 13.6 g/dL (13.5-17.5); IMMATURE GRAN ABSOLUTE AUTO 0.02 K/mm3 (0.00-0.10); IMMATURE GRAN PERCENT AUTO 0 % (0-1); LYMPHOCYTES ABSOLUTE AUTO 1.49 K/mm3 (0.84-5.20); LYMPHOCYTES PERCENT AUTO 28 % (21-46); MONOCYTES ABSOLUTE AUTO 0.58 K/mm3 (0.16-1.47); MONOCYTES PERCENT AUTO 11 % (4-13); Mean Corpuscular HGB 30.1 pg (26.0-34.0); Mean Corpuscular HGB Conc 34.3 g/dL (31.5-36.5); Mean Corpuscular Volume 88 fL (80-100); Mean Platelet Volume 10.1 fL (9.1-12.4); NEUTROPHILS ABSOLUTE AUTO 3.06 K/mm3 (1.96-9.15); NEUTROPHILS PERCENT AUTO 58 % (41-73); Platelet Count 118 K/mm3 (150-400); RDW Coefficient Variation 13.1 % (11.7-14.2); RDW Standard Deviation 42.1 fL (35.1-46.3); Red Blood Cell Count 4.52 M/mm3 (4.30-5.90); White Blood Cell Count 5.28 K/mm3 (4.00-11.30)
[2025-02-06 12:36] LABS: Albumin, Blood 3.8 g/dL (3.4-5.0); Albumin/Globulin Ratio 1.2 (0.8-1.8); Bilirubin, Total 0.4 mg/dL (0.1-1.0); Bun/Creatinine Ratio 25.7 (12.0-20.0); Calcium, Blood 9.1 mg/dL (8.5-10.1); Creatinine, Blood 1.79 mg/dL (0.60-1.20); Globulin, Blood 3.2 g/dL (2.2-4.0); Potassium, Blood 4.9 mmol/L (3.5-5.5)
[2025-02-06] MEDS ORDERED: Nitroglycerin 0.4 MG SUBL SL PRN (16:00)
[2025-02-06] MEDS ORDERED: Insulin Pump Cartridge MISC SC SCH (21:00)
[2025-02-06] MEDS ORDERED: ARIPiprazole 2 MG Tablet PO SCH (21:00)
[2025-02-06 21:33] VITALS: BP 165/61
[2025-02-06] MEDS ORDERED: Ondansetron HCl 2 MG / ML 2ML Vial IV PRN (21:35)
[2025-02-06] MEDS ORDERED: NS 1,000 ML IV SCH (21:35)
[2025-02-07] VITALS (8 sets, daily range): BP systolic 150–190; BP diastolic 49–93
[2025-02-07 04:34] LABS: BASOPHILS ABSOLUTE AUTO 0.02 K/mm3 (0.00-0.23); BASOPHILS PERCENT AUTO 0 % (0-2); EOSINOPHILS ABSOLUTE AUTO 0.12 K/mm3 (0.00-0.68); EOSINOPHILS PERCENT AUTO 2 % (0-6); Hematocrit 37.7 % (37.0-53.0); Hemoglobin 13.1 g/dL (13.5-17.5); IMMATURE GRAN ABSOLUTE AUTO 0.02 K/mm3 (0.00-0.10); IMMATURE GRAN PERCENT AUTO 0 % (0-1); LYMPHOCYTES ABSOLUTE AUTO 1.51 K/mm3 (0.84-5.20); LYMPHOCYTES PERCENT AUTO 30 % (21-46); MONOCYTES ABSOLUTE AUTO 0.57 K/mm3 (0.16-1.47); MONOCYTES PERCENT AUTO 11 % (4-13); Mean Corpuscular HGB 30.2 pg (26.0-34.0); Mean Corpuscular HGB Conc 34.7 g/dL (31.5-36.5); Mean Corpuscular Volume 87 fL (80-100); Mean Platelet Volume 10.1 fL (9.1-12.4); NEUTROPHILS ABSOLUTE AUTO 2.76 K/mm3 (1.96-9.15); NEUTROPHILS PERCENT AUTO 55 % (41-73); Platelet Count 102 K/mm3 (150-400); RDW Standard Deviation 41.1 fL (35.1-46.3); Red Blood Cell Count 4.34 M/mm3 (4.30-5.90)
[2025-02-07 05:04] LABS: Albumin, Blood 3.4 g/dL (3.4-5.0); Albumin/Globulin Ratio 1.2 (0.8-1.8); Bilirubin, Total 0.4 mg/dL (0.1-1.0); Bun/Creatinine Ratio 24.7 (12.0-20.0); Calcium, Blood 8.8 mg/dL (8.5-10.1); Creatinine, Blood 1.7 mg/dL (0.60-1.20); Globulin, Blood 2.9 g/dL (2.2-4.0); Potassium, Blood 4.2 mmol/L (3.5-5.5); Total Protein, Blood 6.3 g/dL (6.4-8.2)
[2025-02-07] MEDS ORDERED: Pantoprazole Sodium 40 MG Tab PO SCH (06:00)
--- NOTE | 2025-02-07 07:46 | NUR ---
SHIFT SUMMARY: PT ARRIVES TO PCU 12 FROM THE ER AROUND 2114 VIA GURNEY. PT WAS A SBA TRANSFER TO HOSPITAL BED. PT ORIENTED TO ROOM/CALL LIGHT. PT IS A&OX4, PLEASANT AND APPRECIATIVE OF CARE. VSS ON RA, WEARS A CPAP WHILE ASLEEP. SR WITH BBB 60'S -70'S WITH ST ELEVATION. DENIES PAIN. PT HAS A CONTINUOUS INSULIN PUMP, WITH ORDERS TO USE. PT IS INDEPENDENT IN ROOM/BR. TOLERATING A CONS CARB DIET, NPO AFTER MN FOR STRESS TEST TODAY. VOIDING ADEQUATE AMOUNTS OF YELLOW URINE IN URINAL INDEPENDENTLY. NO BM THIS SHIFT. BED IN LOWEST POSITION, CALL LIGHT WITHIN REACH. CALLS APPROPRIATELY AND IS ABLE TO ADVOCATE NEEDS EFFECTIVELY.
--- NOTE | 2025-02-07 08:17 | NUR ---
CALLED HOSPITALIST ABOUT BP 190/58
[2025-02-07] MEDS ORDERED: Metoprolol Tartrate 25 MG Tab PO SCH ×2 (08:45→21:00)
[2025-02-07] MEDS ORDERED: CloNIDine 0.1 MG Tab PO SCH (08:45)
[2025-02-07] MEDS ORDERED: Lisinopril 5 MG Tab PO SCH ×2 (09:00→21:00)
[2025-02-07] MEDS ORDERED: Tamsulosin HCl 0.4 MG Cap PO SCH (09:00)
[2025-02-07] MEDS ORDERED: Clopidogrel Bisulfate 75 MG Tab PO SCH (09:00)
[2025-02-07] MEDS ORDERED: Rosuvastatin Calcium 10 MG Tab PO SCH (09:00)
[2025-02-07] MEDS ORDERED: Enoxaparin 40 MG/0.4 ML SYR SC SCH (09:00)
[2025-02-07] MEDS ORDERED: SOLI5 PO (11:07)
[2025-02-07] MEDS ORDERED: CLOP75 PO (11:09)
[2025-02-07] MEDS ORDERED: ABILIFY MYCITE2 M2 PO (11:28)
[2025-02-07] MEDS ORDERED: INSULANI SC (12:13)
[2025-02-07] MEDS ORDERED: Caffeine Citrated 60 MG/3 ML Vial ONE (13:01)
[2025-02-07] MEDS ORDERED: Regadenoson 0.4 MG/5 ML SYRINGE ONE (13:01)
[2025-02-07] MEDS ORDERED: Insulin Glargine-Yfgn 100 Unit/mL 3 ML SYR SC PRN (13:45)
[2025-02-07] MEDS ORDERED: CloNIDine 0.1 MG Tab PO PRN (14:50)
[2025-02-07] MEDS ORDERED: Sertraline HCl 50 MG Tab PO SCH (18:00)
--- NOTE | 2025-02-07 19:33 | NUR ---
SHIFT SUMMARY PATIENT AOX4 ABLE TO MAKE NEEDS KNOWN. HE DENIES CHEST PAIN AND IS ABLE TO AMBULATE INDEPENDENTLY IN HIS ROOM. HIS BLOOD PRESSURE WAS ELEVATED THIS MORNING HOSPITALIST AWARE AND ADJUSTED MEDS. BLOOD PRESSURE WELL CONTROLLED NOW. PATIENT COMPLETED STRESS TEST TODAY. 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
[2025-02-07] MEDS ORDERED: Felodipine 2.5 MG TAB.ER.24H PO SCH (21:00)
[2025-02-08 04:44] LABS: BASOPHILS ABSOLUTE AUTO 0.03 K/mm3 (0.00-0.23); BASOPHILS PERCENT AUTO 1 % (0-2); EOSINOPHILS ABSOLUTE AUTO 0.12 K/mm3 (0.00-0.68); EOSINOPHILS PERCENT AUTO 2 % (0-6); Hematocrit 38.6 % (37.0-53.0); Hemoglobin 13.1 g/dL (13.5-17.5); IMMATURE GRAN ABSOLUTE AUTO 0.01 K/mm3 (0.00-0.10); IMMATURE GRAN PERCENT AUTO 0 % (0-1); LYMPHOCYTES PERCENT AUTO 30 % (21-46); MONOCYTES ABSOLUTE AUTO 0.55 K/mm3 (0.16-1.47); MONOCYTES PERCENT AUTO 10 % (4-13); Mean Corpuscular HGB 30.3 pg (26.0-34.0); Mean Corpuscular HGB Conc 33.9 g/dL (31.5-36.5); Mean Corpuscular Volume 89 fL (80-100); Mean Platelet Volume 10.5 fL (9.1-12.4); NEUTROPHILS ABSOLUTE AUTO 3.08 K/mm3 (1.96-9.15); NEUTROPHILS PERCENT AUTO 57 % (41-73); Platelet Count 104 K/mm3 (150-400); RDW Coefficient Variation 12.6 % (11.7-14.2); RDW Standard Deviation 41.1 fL (35.1-46.3); Red Blood Cell Count 4.33 M/mm3 (4.30-5.90); White Blood Cell Count 5.39 K/mm3 (4.00-11.30)
[2025-02-08 05:15] LABS: Albumin, Blood 3.3 g/dL (3.4-5.0); Anion Gap 8 mmol/L (3-11); Blood Urea Nitrogen 40 mg/dL (8-24); Bun/Creatinine Ratio 24.8 (12.0-20.0); CO2, Blood 26 mmol/L (21-32); Calcium, Blood 8.9 mg/dL (8.5-10.1); Chloride, Blood 108 mmol/L (98-108); Creatinine, Blood 1.61 mg/dL (0.60-1.20); Glomerular Filtration Rate 43 (60-); Glucose, Blood 87 mg/dL (70-99); Potassium, Blood 4.1 mmol/L (3.5-5.5); Sodium, Blood 138 mmol/L (136-145)
[2025-02-08 06:21] VITALS: BP 130/51
--- NOTE | 2025-02-08 07:19 | NUR ---
PT VERY PLEASANT ALL NIGHT, ABLE TO REST, VSS, HR IN 50S METOPROLOL HELD (REFER TO MAR), BP WDL, NO COMPLAINTS OF PAIN/CHEST PAIN/SOB, COMPLIANT WITH CPAP AT NIGHT. PT'S INSULIN PUMP CHECKED PER PROTOCOL, BLOOD GLUCOSE WDL. NO CONCERNS AT THIS TIME.
[2025-02-08 08:31] VITALS: BP 140/51
[2025-02-08] MEDS ORDERED: Cholecalciferol 1000 Unit Tablet (=25MCG) PO SCH (09:00)
[2025-02-08] MEDS ORDERED: Tamsulosin HCl 0.4 MG Cap PO SCH (09:00)
[2025-02-08] MEDS ORDERED: CATAPRES0.1 MG PO (11:00)
[2025-02-08] MEDS ORDERED: Lopressor 25 mg25 MG PO (11:13)
[2025-02-08] MEDS ORDERED: PANT20 PO (11:29)
[2025-02-08 12:11] VITALS: BP 168/69
[2025-02-08 12:42] VITALS: BP 124/53
--- NOTE | 2025-02-08 13:09 | NUR ---
SHIFT SUMMARY/DISCHARGE PATIENT AOX4 ABLE TO MAKE NEEDS KNOWN AND INDEPENDENT IN THE ROOM. HE DENIES CHEST PAIN AND SOB. HIS HR RATE THIS MORNIING WAS MALLORY IN THE 50'S HOSPITALIST AWARE AND PO METOPROLOL WAS HELD. HOSPITALIST CAME TO BEDSIDE AND EXPLAINED THE DISCHARGE ORDERS AND INSTRUCTIONS TO THE PATIENT AND ANSWERED ALL HIS QUESTIONS. THE PATIENT WAS GIVEN HIS DISCHARGE INSTRUCTIONS AND FOLLOW UP INFORMATION. PATIENT WAS EDUCATED ON HIS MEDICATIONS AND SPECIFICALLY HIS HEART/BP MEDS AND PARAMETERS. HIS CLONIDINE PRN INSRTUCTIONS WERE CLARIFIED BY CALLING THE HOSPITALIST AND CONFIRMING ITS TO TAKE FOR SBP MORE THAN OR EQUAL TO 180 AND DBP MORE THAN OR EQUAL TO 100. THAT WAS REINFORCED TO THE PATIENT BECAUSE ON THE DC PAPERS IT SAID 110 FOR THE DBP. VITALS WERE STABLE IV WAS REMOVED AND PATIENT WAS WHEELED DOWN TO HIS CAR.
== END 2025-02-08 12:54 | disposition home or self-care (01) ==
LOC: ER 11:47 → PCU 11:48 → ER 18:00 → PCU 21:12 → ER 21:52 → PCU 02-07 07:43
PROVIDERS: Family Medicine; Internal Medicine; Student in an Organized Health Care Education/Training Program; ADMIT Student in an Organized Health Care Education/Training Program
DX: I25.118 Atherosclerotic heart disease of native coronary artery with other forms of angina pectoris (principal); I48.0 Paroxysmal atrial fibrillation; K21.9 Gastro-esophageal reflux disease without esophagitis; E10.22 Type 1 diabetes mellitus with diabetic chronic kidney disease; I12.9 Hypertensive chronic kidney disease with stage 1 through stage 4 chronic kidney disease, or unspecified chronic kidney disease; N18.30 Chronic kidney disease, stage 3 unspecified; E66.01 Morbid (severe) obesity due to excess calories; G47.33 Obstructive sleep apnea (adult) (pediatric); F31.9 Bipolar disorder, unspecified; N40.0 Benign prostatic hyperplasia without lower urinary tract symptoms; Z99.89 Dependence on other enabling machines and devices; Z95.1 Presence of aortocoronary bypass graft; Z79.4 Long term (current) use of insulin; Z79.899 Other long term (current) drug therapy
CPT/HCPCS: 36415; 71046; 78452; 80053; 80069; 82947; 83735; 84484; 85025; 93005; 93010; 93017; 94660; 94762; 96372; 99285-25; A9270; A9500; G0378; J0706; J1650; J2785; J7030

== ENCOUNTER 2025-02-21 12:30 | Day surgery (SDC) | payer OTHER ==
[~2025-02-21] VITALS: Ht 172.7 cm; Wt 101.5 kg
[~2025-02-21 12:30] MED LIST changes: +ABILIFY MYCITE2 M2 PO; +CLOP75 PO; +INSULANI SC; +Lopressor 25 mg25 MG PO; +PANT20 PO; +SOLI5 PO
[2025-02-21] MEDS ORDERED: Lidocaine HCl/Pf 1% 5 ML VIAL ONE (13:17)
[2025-02-21] MEDS ORDERED: propofoL 20 ML IV ONE (13:17)
[2025-02-21] MEDS ORDERED: Benzocaine Oral Spray 0.5ML UD ONE (13:18)
[2025-02-21] MEDS ORDERED: Lactated Ringer's 1,000 ML IV ONE (13:28)
[2025-02-21] MEDS ORDERED: propofoL 50 ML IV ONE (13:50)
[2025-02-21 14:45] VITALS: BP 127/55
== END 2025-02-21 14:35 | disposition home or self-care (01) ==
LOC: ORSCSDS 12:30
PROVIDERS: Internal Medicine Gastroenterology
PROC: 0DJ08ZZ Inspection of Upper Intestinal Tract, Via Natural or Artificial Opening Endoscopic (ICD-10-PCS; principal; 2025-02-21 14:00)
DX: R13.10 Dysphagia, unspecified (principal); K22.70 Barrett's esophagus without dysplasia; R10.13 Epigastric pain; G47.33 Obstructive sleep apnea (adult) (pediatric); E10.22 Type 1 diabetes mellitus with diabetic chronic kidney disease; I12.9 Hypertensive chronic kidney disease with stage 1 through stage 4 chronic kidney disease, or unspecified chronic kidney disease; N18.9 Chronic kidney disease, unspecified; K21.9 Gastro-esophageal reflux disease without esophagitis; I25.10 Atherosclerotic heart disease of native coronary artery without angina pectoris; Z95.1 Presence of aortocoronary bypass graft; K31.84 Gastroparesis; F31.9 Bipolar disorder, unspecified; E66.9 Obesity, unspecified; Z68.34 Body mass index [BMI] 34.0-34.9, adult; Z79.899 Other long term (current) drug therapy; Z79.02 Long term (current) use of antithrombotics/antiplatelets
CPT/HCPCS: A9270; J2003; J2704

== ENCOUNTER → 2025-07-05 | Outpatient (CLI) | payer OTHER | LOC: LAB SHORT 16:14 → LAB 16:14 | DX: N39.0 Urinary tract infection, site not specified (principal) | CPT/HCPCS: 87086 ==